=== PATIENT | male | born 1970 | race American Indian/Alaskan Native ===

== ENCOUNTER 2021-09-05 13:32 | Emergency (ER) | payer SELFPAY ==
[2021-09-05 13:35] VITALS: BP 127/75
--- NOTE | 2021-09-05 17:38 | Emergency Department Report ---
ED ENT HPI - General Chief complaint: Dental/Oral Stated complaint: TOOTHACHE Time Seen by Provider: 09/05/21 16:38 Source: patient Mode of arrival: Ambulatory Limitations: No Limitations - History of Present Illness Initial comments: 50-year-old black male presents to the emergency department for evaluation of few day history of worsening tooth pain. He states that he has had a toothache for a few days unrelieved by Tylenol and has gotten progressively worse. He denies fever. MD complaint: tooth pain -: Gradual, days(s) (2-3) Location: tooth # (18) Severity: severe Severity scale (0 -10): 10 Quality: aching Consistency: constant Context- Dental: history of dental caries, poor dental care Associated Symptoms: gum swelling, toothache. denies: fever, cough, pain with swallowing, sore throat, tinnitus, hearing loss, discharge from ear, rhinorrhea - Related Data Previous Rx's Medication Instructions Recorded Last Taken Type Acetaminophen/Codeine [Tylenol 1 tab PO Q6H PRN #12 tab 09/05/21 Unknown Rx /Codeine # 3 tab] Amoxicillin [Amoxicillin TAB] 875 mg PO BID 7 Days #14 tab 09/05/21 Unknown Rx Ketorolac [Toradol] 10 mg PO Q6H PRN #12 tab 09/05/21 Unknown Rx Allergies Allergy/AdvReac Type Severity Reaction Status Date / Time No Known Allergies Allergy Unverified 09/05/21 17:47 ED Dental HPI - General Chief complaint: Dental/Oral Stated complaint: TOOTHACHE Time Seen by Provider: 09/05/21 16:38 Source: patient Mode of arrival: Ambulatory Limitations: No Limitations - History of Present Illness Context- Dental: poor dental care Dental Associated Symptons: Yes: Headache, Earache, Gum Swelling. No: Sore Throat, Fever - Related Data Previous Rx's Medication Instructions Recorded Last Taken Type Acetaminophen/Codeine [Tylenol 1 tab PO Q6H PRN #12 tab 09/05/21 Unknown Rx /Codeine # 3 tab] Amoxicillin [Amoxicillin TAB] 875 mg PO BID 7 Days #14 tab 09/05/21 Unknown Rx Ketorolac [Toradol] 10 mg PO Q6H PRN #12 tab 09/05/21 Unknown Rx Allergies Allergy/AdvReac Type Severity Reaction Status Date / Time No Known Allergies Allergy Unverified 09/05/21 17:47 ED Review of Systems ROS: Stated complaint: TOOTHACHE Other details as noted in HPI Comment: All other systems reviewed and negative Constitutional: denies: chills, fever Eyes: denies: vision change ENT: denies: throat pain Respiratory: denies: shortness of breath Cardiovascular: denies: chest pain, palpitations Gastrointestinal: denies: abdominal pain, nausea, vomiting Genitourinary: denies: urgency Musculoskeletal: denies: back pain Skin: denies: rash, lesions Neurological: headache. denies: weakness ED Past Medical Hx - Past Medical History Previous Medical History?: No - Surgical History Past Surgical History?: No - Social History Smoking Status: Never Smoker - Medications Home Medications: Home Medications Medication Instructions Recorded Confirmed Last Taken Type Acetaminophen/Codeine [Tylenol 1 tab PO Q6H PRN #12 tab 09/05/21 Unknown Rx /Codeine # 3 tab] Amoxicillin [Amoxicillin TAB] 875 mg PO BID 7 Days #14 tab 09/05/21 Unknown Rx Ketorolac [Toradol] 10 mg PO Q6H PRN #12 tab 09/05/21 Unknown Rx ED Physical Exam - General Limitations: No Limitations General appearance: alert, in no apparent distress - Head Head exam: Present: atraumatic, normocephalic - Eye Eye exam: Present: normal appearance. Absent: conjunctival injection, periorbital swelling, periorbital tenderness - Expanded ENT Exam Expanded Teeth exam: Present: dental tenderness # (18), other (erythema, edema, and tenderness noted to tooth #18, no abscess noted. ). Absent: normal inspection - Neck Neck exam: Present: normal inspection. Absent: lymphadenopathy - Respiratory Respiratory exam: Absent: respiratory distress - Cardiovascular Cardiovascular Exam: Present: bradycardia - GI/Abdominal GI/Abdominal exam: Absent: distended - Extremities Exam Extremities exam: Present: normal inspection - Back Exam Back exam: Present: normal inspection - Neurological Exam Neurological exam: Present: alert, oriented X3 - Psychiatric Psychiatric exam: Present: normal affect, normal mood - Skin Skin exam: Present: warm, dry, intact, normal color ED Course Vital Signs 09/05/21 13:33 Temperature 98.9 F Pulse Rate 57 L Respiratory 18 Rate Blood Pressure 127/75 O2 Sat by Pulse 100 Oximetry ED Medical Decision Making - Medical Decision Making 50-year-old black male presents to the emergency department for evaluation of few day history of worsening tooth pain. He states that he has had a toothache for a few days unrelieved by Tylenol and has gotten progressively worse. He denies fever. Exam consistent with dental pain secondary to dental caries. Patient will be treated with amoxicillin, Toradol, and Percocet while in the emergency department and discharged home with 7-day course of amoxicillin along with Toradol and Tylenol 3 to use as needed for pain. He is advised to take med ications as prescribed, follow-up with dentist as soon as possible, and return to the emergency department for any concerning symptoms. He verbalizes understanding of and agreement with plan of care. Critical care attestation.: If time is entered above; I have spent that time in minutes in the direct care of this critically ill patient, excluding procedure time. ED Disposition Clinical Impression: Pain due to dental caries Disposition: 01 HOME / SELF CARE / HOMELESS Is pt being admited?: No Does the pt Need Aspirin: No Condition: Stable Instructions: Preventive Dental Care, Adult Additional Instructions: Take medications as prescribed. Follow-up with dentist as soon as possible. Return to the emergency department as needed. Prescriptions: Amoxicillin [Amoxicillin TAB] 875 mg PO BID 7 Days #14 tab Ketorolac [Toradol] 10 mg PO Q6H PRN #12 tab PRN Reason: Pain Acetaminophen/Codeine [Tylenol /Codeine # 3 tab] 1 tab PO Q6H PRN #12 tab PRN Reason: Pain , Severe (7-10) Referrals: [facility] [Outside] - 3-5 Days [facility] [Outside] - 3-5 Days Forms: Work/School Release Form(ED) Time of Disposition: 17:38
[2021-09-05] MEDS ORDERED: AMOXICILLIN 500 MG CAP PO ONE (18:00)
[2021-09-05] MEDS ORDERED: KETOROLAC 10 MG TAB PO ONE (18:00)
[2021-09-05] MEDS ORDERED: oxyCODONE /ACETAMINOPHEN 5-325MG TAB PO ONE (18:00)
== END 2021-09-05 18:00 | disposition home or self-care (01) ==
LOC: ED 13:32
DX: K02.9 Dental caries, unspecified (principal)
CPT/HCPCS: 99282